=== PATIENT | female | born 1940 | race Caucasian/White ===

== ENCOUNTER → 2023-11-13 11:29 | Outpatient (REF) | payer OTHER, SELFPAY ==
[2023-11-13 12:43] LABS: ALT (SGPT) 11 U/L (0-35); AST (SGOT) 20 U/L (14-36); Alkaline Phosphatase 153 U/L (38-126); Blood Urea Nitrogen 16 mg/dl (7-17); Calcium 9.8 mg/dl (8.4-10.2); Carbon Dioxide 20 mmol/L (22-30); Chloride 112 mmol/L (98-107); Glucose 64 mg/dl (70-99); HDL Cholesterol 60 mg/dl; LDL Cholesterol, Calculated 28 mg/dl; Magnesium 2.2 mg/dl (1.6-2.3); Potassium 3.8 mmol/L (3.5-5.1); Sodium 140 mmol/L (135-145); Total Bilirubin 0.4 mg/dl (0.2-1.3); Total Cholesterol 118 mg/dl (50-199); Total Protein 5.6 g/dl (6.3-8.2); Triglyceride 154 mg/dl (10-149); Very Low Density Lipoprotein 30 mg/dl (0-30); eGFR 34.36
[2023-11-13 12:50] LABS: Free T4 1.84 ng/dl (0.78-2.19); Vitamin D, 25-OH*** 28.2 ng/mL (30-80)
[2023-11-13 13:03] LABS: TSH 0.12 uIU/ml (0.47-4.68)
[2023-11-13 13:16] LABS: % Basophils 0.5 % (0-2); % Eosinophils 3.4 % (0-6); % Immature Granulocytes 0.4 % (0-0.5); % Lymphocytes 18.6 % (20.5-51.1); % Monocytes 5.4 % (1.7-9.3); % Neutrophils 71.7 % (42.2-75.2); Absolute Basophils 0.1 10^3/uL (0-0.2); Absolute Eosinophils 0.3 10^3/uL (0-0.7); Absolute Lymphocytes 1.7 10^3/uL (1.2-3.4); Absolute Monocytes 0.5 10^3/uL (0.1-0.6); Absolute Neutrophils 6.6 10^3/uL (1.4-6.5); Hematocrit 31.3 % (37.0-47.0); Hemoglobin 10.1 g/dL (12.0-16.0); Mean Corp Hgb Conc. 32.3 g/dL (33.0-37.0); Mean Corpuscular Hgb 33.7 pg (27.0-31.0); Mean Corpuscular Volume 104.3 fL (81.0-99.0); Mean Platelet Volume 11.3 fL (7.4-10.4); Nucleated Red Blood Cells % 0 %; Platelet Count 365 10^3/uL (130-400); Red Cell Dist. Width 14.5 % (11.5-14.5); White Blood Cell Count 9.2 10^3/uL (4.8-10.8)
[2023-11-14 10:09] LABS: Intact PTH 4.2 pg/ml (13.6-85.8)
== END ==
LOC: OLABN 11:29
PROVIDERS: ATTENDING PHYSICIAN Student in an Organized Health Care Education/Training Program
DX: I10 Essential (primary) hypertension (principal); R78.89 Finding of other specified substances, not normally found in blood; E03.9 Hypothyroidism, unspecified; E21.0 Primary hyperparathyroidism; R53.83 Other fatigue
CPT/HCPCS: 80053; 80061; 80178; 82306; 83735; 83970; 84439; 84443; 85025

== ENCOUNTER 2023-11-17 14:20 | Emergency (ER) | payer OTHER, SELFPAY ==
[2023-11-17] VITALS (8 sets, daily range): BP systolic 93–137; BP diastolic 44–58; BMI 23.0
[2023-11-17 14:50] LABS: % Basophils 0.4 % (0-2); % Eosinophils 1.6 % (0-6); % Immature Granulocytes 0.4 % (0-0.5); % Lymphocytes 15.3 % (20.5-51.1); % Monocytes 5.1 % (1.7-9.3); % Neutrophils 77.2 % (42.2-75.2); Absolute Eosinophils 0.2 10^3/uL (0-0.7); Absolute Lymphocytes 1.6 10^3/uL (1.2-3.4); Absolute Monocytes 0.5 10^3/uL (0.1-0.6); Absolute Neutrophils 8.2 10^3/uL (1.4-6.5); Hematocrit 35.4 % (37.0-47.0); Hemoglobin 11.9 g/dL (12.0-16.0); Mean Corp Hgb Conc. 33.6 g/dL (33.0-37.0); Mean Corpuscular Hgb 34.9 pg (27.0-31.0); Mean Corpuscular Volume 103.8 fL (81.0-99.0); Mean Platelet Volume 10.5 fL (7.4-10.4); Nucleated Red Blood Cells % 0 %; Platelet Count 413 10^3/uL (130-400); Red Blood Cell Count 3.41 10^6/uL (4.20-5.40); Red Cell Dist. Width 14.1 % (11.5-14.5); White Blood Cell Count 10.6 10^3/uL (4.8-10.8)
--- NOTE | 2023-11-17 15:09 | PHANOTE ---
med rec note- called [facility] for medication list for patient
[2023-11-17 15:13] LABS: ALT (SGPT) 14 U/L (0-35); AST (SGOT) 29 U/L (14-36); Albumin 3.6 g/dl (3.5-5.0); Alkaline Phosphatase 157 U/L (38-126); Blood Urea Nitrogen 21 mg/dl (7-17); Calcium 10.7 mg/dl (8.4-10.2); Carbon Dioxide 22 mmol/L (22-30); Chloride 106 mmol/L (98-107); Estimated Creatinine Clearance 23 ml/min; Glucose 112 mg/dl (70-99); Lithium 0.9 mmol/L (0.6-1.2); Potassium 4.3 mmol/L (3.5-5.1); Sodium 137 mmol/L (135-145); Total Bilirubin 0.5 mg/dl (0.2-1.3); Total Protein 6.5 g/dl (6.3-8.2); eGFR 29.57
--- NOTE | 2023-11-17 15:16 | ED.GENMED ---
History of Present Illness
General
Chief Complaint: Abdominal Symptoms
Source: patient and retirement records
Time Seen by Provider: 11/17/23 15:14
Nursing documentation reviewed up to this point in time: agreed with
History of Present Illness
History of Present Illness:
83-year-old female from [facility] with history of neuropathy, spinal stenosis, expressive aphasia, CHF, PVD, chronic renal failure, hyperparathyroidism, bipolar disorder presents from retirement for reportedly having 7 episodes of vomiting
yesterday, none today and family reporting she has been more lethargic and appetite is poor.
Pt denies CP, SOB, abdominal pain. Denies UTI symptoms. Denies fever, denies nausea now, states she has not vomited today.
She has had a poor appetite past 3 weeks she states due to the fact of poor retirement food at her admission to [facility] and never regained her appetite.
She was transferred to [facility] on 11/09/23.
[place] dose changed from 450 mg to 300 mg and daughter insisted that it be increased back to 450 mg per retirement note.
[place] note states pt has increasing cognitive decline, increased paranoia.
Niece arrives who is a nurse practitioner. She states patient lives with her daughter up until that time she fell at home fracturing her hip, went to [facility] had the hip replaced, had postop complications of pneumonia and was in [facility] for about
a month, prior to her discharge there they decreased her lithium. She was discharged from [facility] to the rehab at [facility] where she fell again approximately 11 days ago and went back to [facility]. She has had bruising of her
left arm and left leg since that fall. Family requested that she not go back to the [facility] and she was admitted to [facility] on 11/08.
Niece states ever since she had her hip replaced her mood has not been stable cognition seems to be diminishing. Family with met with nurse practitioner at [facility] and had the lithium increased back up to 450 mg
Past History
Past History
ED Past Medical History: CHF, Renal failure and Other (Hyperparathyroidism, spinal stenosis, neuropathy, aortic stenosis)
ED Past Surgical History: Cholecystectomy and Orthopedic
Social History
Tobacco: Non-smoker
Alcohol: None
Living: assisted living
Review of Systems
Review of Systems
Allergies reviewed?: Yes
All Other Systems: ROS reviewed and negative except as documented in HPI and ROS
Constitutional: Reports fatigue; Denies fever or chills
EENT: Denies sore throat
Respiratory: Denies trouble breathing
Cardiac: Denies chest pain
ABD/GI: Reports vomiting (yesterday, none today) and anorexia; Denies abdominal pain, nausea (denies nausea at this time), diarrhea or constipated
: Denies dysuria, frequency, incontinence, difficulty voiding or urgency
Musculoskeletal: Reports no symptoms
Skin: Reports no symptoms
Neurological: Reports no symptoms
Phy Exam
Physical Exam
Physical Exam:
GENERAL: No acute distress. A&Ox3.
CONSTITUTIONAL: Afebrile.
EYES: PERRL, conjunctivae normal
Neck: Supple
ENMT: moist mucus membranes, Pharynx nl
RESPIRATORY: Regular respirations, nonlabored, lungs clear.
CARDIOVASCULAR: Regular rate and rhythm, no murmurs, no rubs.
GI: Soft, nontender, normal BS
MUSCULOSKELETAL: Moves with ease. Well perfused. No edema.
SKIN: Warm, dry, pink, multiple bruises of left arm and left leg from previous fall
PSYCH: Normal mood and affect. Well kept, interactive and appropriate
NEUROLOGIC: Awake, alert and oriented. No focal neurological deficits
Course
Orders/Labs/Results
Orders:
Orders
11/17/23 14:32
ECG [Electrocardiogram (*1)] Urgent
Reason for Study: Fatigue / Weakness
EKG- Treatment ONCE
11/17/23 14:46
Complete Blood Count/With Diff Urgent
Comprehensive Metabolic Panel Urgent
[place] Urgent
11/17/23 15:15
Straight cath- Treatment ONCE
11/17/23 15:16
0.9% Sodium Chloride 500 ml [Nss] 500 ml IV BOLUS
11/17/23 16:06
Urinalysis Reflex To Culture Urgent
Date Specimen was Collected: 11/17/23
Time Specimen was Collected: 16:02
11/17/23 16:13
COVID-19 Antigen Urgent
Source: Nasal Swab
11/17/23 21:35
Ondansetron Injectable [Zofran] 4 mg IV NOW STA
11/17/23 21:36
Lamotrigine [Lamictal] 100 mg PO NOW STA
Abnormal Lab Results
11/17/23
14:46
RBC 3.41 L 10^6/uL
(4.20-5.40)
Hgb 11.9 L g/dL
(12.0-16.0)
Hct 35.4 L %
(37.0-47.0)
MCV 103.8 H fL
(81.0-99.0)
MCH 34.9 H pg
(27.0-31.0)
Plt Count 413 H 10^3/uL
(130-400)
MPV 10.5 H fL
(7.4-10.4)
Absolute Neuts (auto) 8.2 H 10^3/uL
(1.4-6.5)
Neutrophils % 77.2 H %
(42.2-75.2)
Lymphocytes % 15.3 L %
(20.5-51.1)
BUN 21 H mg/dl
(7-17)
Creatinine 1.7 H mg/dL
(0.6-1.0)
Glucose 112 H mg/dl
(70-99)
Calcium 10.7 H mg/dl
(8.4-10.2)
Alkaline Phosphatase 157 H U/L
(38-126)
11/17/23 14:46
11/17/23 14:46
Vital Signs
Initial and Last Documented VS:
Initial Vital Signs
Temp Pulse Resp Pulse Ox
97.7 F 69 20 99
11/17/23 14:28 11/17/23 14:28 11/17/23 14:28 11/17/23 14:28
Last Documented Vital Signs
Temp Pulse Resp BP Pulse Ox
97.7 F 80 17 137/52 99
11/17/23 14:28 11/17/23 21:45 11/17/23 21:45 11/17/23 21:00 11/17/23 15:45
MDM/Problems Addressed
Differential Diagnosis Includes:
Dehydration, depression, gastritis, GERD
MDM/Problems Addressed:
83-year-old female from [facility] with history of neuropathy, spinal stenosis, expressive aphasia, CHF, PVD, chronic renal failure, hyperparathyroidism, bipolar disorder presents from retirement for reportedly having 7 episodes of vomiting
yesterday, none today and family reporting she has been more lethargic and appetite is poor.
Pt denies CP, SOB, abdominal pain. Denies UTI symptoms. Denies fever, denies nausea now, states she has not vomited today.
She has had a poor appetite past 3 weeks she states due to the fact of poor retirement food at her admission to [facility] and never regained her appetite.
She was transferred to [facility] on 11/09/23.
[place] dose changed from 450 mg to 300 mg and daughter insisted that it be increased back to 450 mg per retirement note.
[place] note states pt has increasing cognitive decline, increased paranoia.
Niece arrives who is a nurse practitioner. She states patient lives with her daughter up until that time she fell at home fracturing her hip, went to [facility] had [facility], had postop complications of pneumonia and was in [facility] for about
a month, prior to her discharge there they decreased her lithium. She was discharged from [facility] to the rehab at [facility] where she fell again approximately 11 days ago and went back to [facility]. She has had bruising of her
left arm and left leg since that fall. Family requested that she not go back to the [facility] and she was admitted to [facility] on 11/08.
Niece states ever since she had her hip replaced her mood has not been stable cognition seems to be diminishing. Family with met with nurse practitioner at [facility] and had the lithium increased back up to 450 mg
Niece requests that patient try Protonix that she has been on Pepcid and that does not seem to be helping. Niece states although it was reported that patient vomited 7 times yesterday, she states she did not vomit yesterday, she has frequent
episodes of belching with regurgitation, she vomited once today.
Abdomen benign, no repeated vomiting, rather regurgitation intermittently with eating. Vomited once today per family. Do not suspect obstruction, no abd imaging indicated at this time.
3:30 PM
CBC with no clinically significant abnormality
CMP with no clinically significant abnormality. She has baseline kidney insufficiency and her creatinine is 1.7 up from 1.5 four days ago, most likely in part from dehydration.
Urinalysis is negative
Patient will be referred to cardiology as family states she never had any cardiac problems and it was in [facility] for her hip fracture when she had an echocardiogram and she was placed on Lasix family requesting a referral to aerologist to be
reevaluated and hopefully taken off the Lasix due to her kidney functions and her reinstatement of the higher level of lithium
Patient also given a referral to GI
8:00 PM
Patient has had no vomiting, is tolerating fluids and ena summers, at bedside
Stable for discharge. Ambulance state they will be here at 8:30 p.m.
11:15 PM
Due to mixup in ambulance transport information on the ambulance is side, patient just now take back to retirement
Ambulance arrived to transport patient back to retirement.
Rx for Protonix and Zofran sent with patient
*Critical Care Note
Total Time (30-74mins, 75-104mins- exclusive of procedures): Not Applicable
ED Attending Note
-
Portions of this chart may have been created with voice recognition software.� Occasional wrong word or��sound alike� substitutions may have occurred due to the inherent limitations of voice recognition software.
Discharge Plan
Departure
Patient Disposition: Skilled Nursing/SNF
Date of Disposition: 11/17/23
Time of Disposition: 19:10
Condition: Fair
Discharge Problem:
Altered mental state, GERD (gastroesophageal reflux disease), Regurgitation of food, Depression
Instructions: Acid reflux and GERD in adults, Depression, Adult ED
Prescriptions:
New
pantoprazole [Protonix] 40 mg tablet,delayed release (DR/EC)
40 mg PO DAILY Qty: 30 0RF
ondansetron 4 mg tablet,disintegrating
4 mg PO Q8H PRN (Reason: nausea and vomiting) 4 Days Qty: 14 0RF
No Action
acetaminophen 325 mg Tablet
650 mg PO Q4HPRN MDD 3000 mg PRN (Reason: mild pain/fever>100.4)
albuterol sulfate 2.5 mg /3 mL (0.083 %) Solution For Nebulization
2.5 mg INHALATION R Q4HPRN PRN (Reason: wheezing)
amlodipine 5 mg Tablet
5 mg PO DAILY
acetaminophen 500 mg Tablet
1,000 mg PO Q8H
Patient Comments:
11/17/23: take for 10 days, starting 11/09/23.
lithium carbonate 450 mg Tablet Extended Release
450 mg PO DAILY
levothyroxine 100 mcg Tablet
100 mcg PO DAILY
famotidine 20 mg Tablet
20 mg PO BID
magnesium hydroxide [Milk of Magnesia] 400 mg/5 mL Suspension
30 ml PO DAILYPRN PRN (Reason: constipation)
bisacodyl 10 mg Suppository
10 mg FL DAILYPRN PRN (Reason: day 3 no bm, mom ineffective)
furosemide 20 mg Tablet
20 mg PO MOWEFR
calcitriol 0.25 mcg Capsule
0.25 mcg PO Q48H
lamotrigine 100 mg Tablet
100 mg PO TID
Referrals:
Adam Pearson MD [Active] - Next open appointment
Ryan Bernstein DO [Family Provider] -
Kassie Maguire DO [Active] - Next open appointment
Activity Restrictions/Additional Instructions:
Your workup here today shows nothing worrisome, no sign of urine infection. Blood work unremarkable except the kidney function is diminished (which you already knew).
Stop Pepcid and start Protonix
Follow up with the GI doctor for your reflux and regurgitating
Follow up with the [facility] to discuss need for Lasix, or not
Interventions
Interventions:
*Risk Screen - Suicide Last Done: 11/17/23 14:43
*General Assessment Last Done: 11/17/23 14:43
*Neglect/Abuse Screening Last Done: 11/17/23 14:43
*ED COVID-19 Vaccine History Last Done: 11/17/23 14:43
OF-Ugesmz-Konsyqyrmt Assessment Last Done: 11/17/23 14:44
Discharge Date and Time
Print Language: MOZAMBICAN
[2023-11-17] MEDS: NSS 500 IV (16:10)
[2023-11-17 16:35] LABS: Urine Albumin Negative (Neg - Trace); Urine Bilirubin Negative (Negative); Urine Character Clear (Clear); Urine Color Yellow; Urine Glucose Negative (Negative); Urine Ketone Negative (Negative); Urine Leukocyte Negative (Negative); Urine Nitrite Negative (Negative); Urine Occult Blood Negative (Negative); Urine Urobilinogen Negative (Neg - 1+)
[2023-11-17 16:42] LABS: COVID-19 Antigen Negative (Negative)
[2023-11-17] MEDS: LAMICTAL 100 MG PO (21:38)
[2023-11-17] MEDS: ZOFRAN 4 MG IV (21:38)
== END 2023-11-17 22:30 ==
LOC: EMR 14:20
PROVIDERS: Registered Nurse; EMERGENCY PHYSICIAN Emergency Medicine; FAMILY PHYSICIAN Student in an Organized Health Care Education/Training Program
DX: R41.82 Altered mental status, unspecified (principal); R11.10 Vomiting, unspecified; K21.9 Gastro-esophageal reflux disease without esophagitis; F31.9 Bipolar disorder, unspecified; I50.9 Heart failure, unspecified; Z11.52 Encounter for screening for COVID-19
CPT/HCPCS: 99284; 96374; 96361; 80053; 80178; 81003; 85025; 87811; 93005